=== PATIENT | female | born 1975 | race Two or more races ===

== ENCOUNTER 2020-12-18 17:41 | Emergency (ER) | payer OTHER ==
[~2020-12-18] VITALS: Ht 160 cm; Wt 81.6 kg
[2020-12-18] MEDS ORDERED: TOPROL XL100 M1 (18:30)
== END 2020-12-18 21:55 | disposition home or self-care (01) ==
LOC: ER 17:41
DX: I47.1 Supraventricular tachycardia (principal); R00.2 Palpitations